=== PATIENT | female | born 1985 | race Caucasian/White ===

== ENCOUNTER 2017-11-05 14:46 | Day surgery (SDC) | payer BC ==
[2017-11-05] MEDS ORDERED: Ketorolac Tromethamine 30 MG/ML VIAL ONE (15:03)
[2017-11-05] MEDS ORDERED: Dexamethasone 20 MG/5 ML VIAL ONE (15:03)
[2017-11-05] MEDS ORDERED: Ondansetron HCl/PF 4 MG/2 ML Vial ONE (15:03)
[2017-11-05] MEDS ORDERED: Propofol 500 MG/50 ML VIAL ONE (16:38)
[2017-11-05] MEDS ORDERED: Midazolam HCl 2 mg/2 ml Vial ONE ×2 (16:39→16:42)
[2017-11-05] MEDS ORDERED: Fentanyl 100 MCG/2 ML VIAL ONE (16:39)
[2017-11-05] MEDS ORDERED: Acetaminophen 500 MG TAB ONE (18:48)
--- NOTE | 2017-11-05 22:09 | OP ---
DATE OF ENCOUNTER: 11/05/2017 PREOPERATIVE DIAGNOSIS: Missed at 9 weeks with questionable pole. POSTOPERATIVE DIAGNOSIS: Missed at 9 weeks with questionable pole. PROCEDURE: Suction D and C. SURGEON: Alonso Platt M.D. ANESTHESIA: General. ESTIMATED BLOOD LOSS: 50 mL. SPECIMENS REMOVED: Products of conception. COMPLICATIONS: None. COUNTS: Correct. INDICATIONS FOR PROCEDURE: Ms. Gudino is a 32-year-old female G3, P1 who was diagnosed yesterday wi th a missed AB and desired a suction D and C for management. The patient was counseled by myself for her options including expectant versus medical versus surgical management and after our conversation gave informed consent to proceed with the suction D and C. DESCRIPTION OF PROCEDURE: She was brought to the operating room where she was placed under general a nesthesia without difficulty and placed in dorsal lithotomy position in [facility]. She was prep ared and draped in normal sterile fashion. Attention was placed vaginally with the aid of operative speculum for identification of the cervix. Cervix was then grasped with a single tooth tenaculum. U terus was sounded to approximately 9 cm and was noted to be anteverted. Cervix was dilated to accomm odate a 9 mm curved curette. The suction canister was then tested to 40 cm of water. The suction cu rette was carefully passed into the uterine cavity, total of 3 times prior to confirmation required o ne passage with a sharp curette, which revealed a nice uterine cry in all 4 quadrants. A final passi ng of the suction curette was performed with very little return. At this point, the single tooth ten aculum was then removed and with pressure. The sites were made hemostatic. There was minimal bleedi ng from the cervix at this time. The patient was taken out of lithotomy position and taken to recove ry room in stable condition.
== END 2017-11-05 18:55 | disposition home or self-care (01) ==
LOC: SDC 14:46
PROVIDERS: ATTEND Obstetrics & Gynecology
PROC: 10D17ZZ Extraction of Products of Conception, Retained, Via Natural or Artificial Opening (ICD-10-PCS; principal; 2017-11-05)
DX: O02.1 Missed abortion (principal); Z3A.09 9 weeks gestation of pregnancy
CPT/HCPCS: 86850; 86900; 86901; 88305; J1100; J1885; J2250; J2405; J2704; J3010; J7050

== ENCOUNTER 2019-05-31 03:19 | Inpatient (IN) | payer BC ==
[2019-05-31] MEDS ORDERED: NS / Oxytocin 40 units/1000ml 1,000 ML ONE (03:44)
[2019-05-31 03:45] VITALS: BMI 25.0
[2019-05-31] MEDS ORDERED: Lidocaine 1% (PF) 30 ML VIAL ONE (03:47)
[2019-05-31 04:03] LABS: Hemoglobin 13.2 g/dL (12.0-16.0); Mean Corpuscular Hemoglobin 32.2 pg (27.0-31.0); Mean Corpuscular Volume 92.1 fL (78.0-98.0); Mean Platelet Volume 8.6 fL (7.4-10.4); Platelet Count 146 thou/uL (130-400); RBC Distribution Width 12.5 % (11.5-14.5); White Blood Cell (WBC) Count 13.7 thou/uL (4.8-10.8)
[2019-05-31] MEDS ORDERED: Misoprostol 200 MCG TAB VAG PRN (04:11)
[2019-05-31] MEDS ORDERED: Lanolin Ointment 7 GM TUBE TOP PRN (04:11)
[2019-05-31] MEDS ORDERED: Preparation H Ointment 28 GM TUBE PR PRN (04:11)
[2019-05-31] MEDS ORDERED: Ondansetron PF 4 MG/2 ML Vial IVP PRN (04:11)
[2019-05-31] MEDS ORDERED: Benzocaine-Menthol 82.5 ML CAN TOP PRN (04:11)
[2019-05-31] MEDS ORDERED: Acetaminophen/Codeine 30-300mg Tablet PO PRN ×2 (04:11)
[2019-05-31] MEDS ORDERED: hydrALAZINE 20 MG/ML VIAL SLOW IVP PRN (04:11)
[2019-05-31] MEDS ORDERED: diphenhydrAMINE 25 MG CAP PO PRN (04:11)
[2019-05-31] MEDS ORDERED: Milk Of Magnesia 30 ML UDCUP PO PRN (04:11)
[2019-05-31] MEDS ORDERED: Bisacodyl 10 MG SUPP PR PRN (04:11)
[2019-05-31] MEDS ORDERED: Zolpidem Tartrate 5 MG TAB PO PRN (04:11)
[2019-05-31] MEDS ORDERED: NS / Oxytocin 40 units/1000ml 1,000 ML IV SCH (04:15)
[2019-05-31 04:44] LABS: HBSAg Index 0.23 S/CO (0-0.99); Hep B Surf Ag Non-Reactive S/CO (NonReactive)
[2019-05-31 04:57] LABS: Syphilis Antibody Nonreactive (Nonreactive); Syphilis Antibody Index 0.02 S/CO (<1.00 Non-Reactive)
[2019-05-31] MEDS: Ibuprofen 800 MG TAB PO SCH ×2 (06:39→14:10)
[2019-05-31] MEDS: Ferrous Sulfate 325 MG TAB PO SCH ×2 (08:25→19:14)
[2019-05-31] MEDS ORDERED: Adacel (T-DAP) 0.5 ML SYRINGE IM ONE (09:00)
[2019-05-31] MEDS: Prenatal Vitamin 1 TAB PO SCH (09:14)
[2019-05-31] MEDS: Docusate Calcium (SURFAK) 240 MG CAP PO SCH (09:18)
[2019-06-01] MEDS: Docusate Calcium (SURFAK) 240 MG CAP PO SCH ×2 (00:58→08:54)
[2019-06-01] MEDS: Ibuprofen 800 MG TAB PO SCH ×3 (00:58→05:41)
[2019-06-01 08:21] VITALS: BP 109/66; TEMP 97.6
[2019-06-01] MEDS: Ferrous Sulfate 325 MG TAB PO SCH (08:54)
[2019-06-01] MEDS: Prenatal Vitamin 1 TAB PO SCH (08:54)
== END 2019-06-01 12:15 | disposition home or self-care (01) | DRG 807 ==
LOC: L&D/OP 03:19 → L&D 03:37 → 3SW 06:22
PROVIDERS: ADMIT Obstetrics & Gynecology; ATTEND Obstetrics & Gynecology
PROC: 10E0XZZ Delivery of Products of Conception, External Approach (ICD-10-PCS; principal; 2019-05-31)
DX: O80 Encounter for full-term uncomplicated delivery (principal); Z37.0 Single live birth; Z3A.40 40 weeks gestation of pregnancy
CPT/HCPCS: 36415; 85027; 86780; 86850; 86900; 86901; 87340; 99285; J2001